=== PATIENT | male | born 1995 | race Caucasian/White ===

== ENCOUNTER 2017-02-15 10:22 | Emergency (ER) | payer MEDICAID, OTHER ==
[~2017-02-15] VITALS: Ht 180.3 cm; Wt 102.0 kg
[~2017-02-15 10:22] MED LIST: IBUP800T23 PO
[2017-02-15 10:29] VITALS: BP 108/66; PULSE 89; RESP 16; TEMP 98.5; O2SAT 96
[2017-02-15 10:47] LABS: GLUCOSE,URINE 250 mg/dL (NEG); KETONE, URINE NEG (NEG); NITRITE,URINE NEG (NEG)
[2017-02-15 10:49] LABS: BLOOD, URINE MOD (NEG)
[2017-02-15 10:51] LABS: METHOD OF COLLECTION CLEAN CATCH
[2017-02-15 10:52] LABS: COMMENT (UR) CULT NOT INDICATED; CULTURE IF INDICATED CULT NOT INDICATED; SQUAMOUS EPITHELIAL CELL URINE 0-5 /hpf (0-5); URINE COLOR YELLOW (YELLW/STRAW); WBC, URINE 0-2 /hpf (0-5)
== END 2017-02-15 12:22 | disposition left against medical advice (07) ==
LOC: PHED 10:22
DX: R68.89 Other general symptoms and signs (principal)
CPT/HCPCS: 81001; 99281

== ENCOUNTER 2018-01-18 12:13 | Emergency (ER) | payer MEDICARE, BC, MEDICAID ==
[~2018-01-18] VITALS: Ht 170.2 cm; Wt 99.6 kg
[2018-01-18 12:19] VITALS: BP 148/69; PULSE 110; RESP 18; TEMP 98.3; O2SAT 98
[2018-01-18] MEDS ORDERED: LIDOCAINE HCL 1% 30 ML VIAL INFIL ONE (14:15)
[2018-01-18] MEDS ORDERED: LIDOCAINE HCL 1% PF 30 ML VIAL ONE (14:20)
--- NOTE | 2018-01-18 14:37 | PD ---
HPI . Laceration Chief Complaint: Laceration/Skin Injury Time Seen by Provider: 14:06 Travel History International Travel<30 days: No Contact w/Intl Traveler<30days: No Traveled to known affect area: No History of Present Illness HPI This patient presents with a chief complaint of a laceration to his right hand. He was inadvertently cut by a razor blade while changing the oil in his car. Tetanus is up-to-date. He reports normal movement and normal sensation distal to the wound. PFSH Past Medical History ADHD: Yes Diminished Hearing: No Immunizations Current: Yes Past Surgical History Ear Surgery: Yes (TUBES IN CHILDHOOD) Social History Alcohol Use: Yes (OCC) Tobacco Use: Yes (3 CIGS) Substance Use: No Allergies-Medications (Allergen,Severity, Reaction): Coded Allergies: No Known Allergies (Verified Allergy, Unknown, 01/18/18) Reported Meds & Prescriptions Reported Meds & Active Scripts Active Ibuprofen 800 Mg Tab 800 Mg PO Q8HR PRN 7 Days Review of Systems Except as stated in HPI: all other systems reviewed are Neg Physical Exam Narrative GENERAL: Awake and alert and in no acute distress. SKIN: Warm and dry. He has a laceration on the thenar eminence of the right hand. Neurovascularly intact. HEAD: Normocephalic/atraumatic. EYES: Pupils are equal. Extraocular movements are intact. NECK: Normal range of motion. CARDIOVASCULAR: Regular rate and rhythm. RESPIRATORY: Nonlabored respirations. MUSCULOSKELETAL: Atraumatic. NEUROLOGICAL: Nonfocal. PSYCHIATRIC: Appropriate mood and affect. Data Data Last Documented VS Vital Signs Date Time Temp Pulse Resp B/P (MAP) Pulse Ox O2 Delivery O2 Flow Rate FiO2 01/18/18 12:19 98.3 110 18 148/69 (95) 98 Orders Orders Lidocaine 1% Inj (Xylocaine 1% Inj) (01/18/18 14:15) Lidocaine Pf 1% Inj (Xylocaine-Mpf 1% In (01/18/18 14:20) MDM Medical Decision Making Medical Screen Exam Complete: Yes Emergency Medical Condition: Yes Differential Diagnosis Differential diagnosis includes but is not limited to skin laceration, muscular laceration, tendon laceration, neurovascular laceration. Narrative Course This patient presents with a simple laceration on the thenar eminence of the right hand. No evidence of foreign body and no evidence of deep structure injury. Tetanus is up-to-date. Procedures Procedure Narrative LACERATION LOCATION: Right thenar eminence LENGTH: 3 cm NUMBER OF STITCHES/BARRETT: 4 REPAIR: The area of the laceration was prepped with Betadine and sterilely draped. The laceration was infiltrated with 1% plain lidocaine. The wound was washed with soap and water. Explored without evidence of foreign body, tendon injury or neurovascular injury. The wound was closed using 4-0 Prolene. This was a single layer repair. A sterile dressing was applied. The patient was advised to keep the dressing clean and dry. Patient tolerated the procedure well. Diagnosis Primary Impression: Laceration of hand Qualified Codes: S61.411A - Laceration without foreign body of right hand, initial encounter Patient Instructions: General Instructions, Laceration (DC) Additional Instructions: Clean the wound twice daily with soap and water. Apply a thin layer of Neosporin ointment after you wash it. See your doctor in 7 days for suture removal. Seek care sooner for redness, drainage, warmth, unusual pain. Disposition: 01 DISCHARGE HOME Condition: Stable Elle Luna MD Jan 18, 2018 14:37
== END 2018-01-18 15:20 | disposition home or self-care (01) ==
LOC: PHED 12:13
DX: S61.411A Laceration without foreign body of right hand, initial encounter (principal); F90.9 Attention-deficit hyperactivity disorder, unspecified type; F17.210 Nicotine dependence, cigarettes, uncomplicated; W26.8XXA Contact with other sharp object(s), not elsewhere classified, initial encounter; Y93.89 Activity, other specified
CPT/HCPCS: 12002